=== PATIENT | male | born 1995 | race African-American/Black ===

== ENCOUNTER → 2016-11-22 | Outpatient (CLI) | payer OTHER | LOC: COL.RAD 07:53 | DX: S73.101A Unspecified sprain of right hip, initial encounter (principal); X58.XXXA Exposure to other specified factors, initial encounter; M25.551 Pain in right hip | CPT/HCPCS: A9585; Q9967 ==

== ENCOUNTER → 2016-11-29 | Outpatient (CLI) | payer OTHER | LOC: COL.RAD 09:06 | DX: M25.551 Pain in right hip (principal) | CPT/HCPCS: J3301; Q9967 ==

== ENCOUNTER → 2018-03-07 | Outpatient (CLI) | payer OTHER | LOC: COL.RAD 09:31 | DX: Z87.820 Personal history of traumatic brain injury (principal); R41.3 Other amnesia ==